=== PATIENT | male | born 1945 | race Caucasian/White ===

== ENCOUNTER 2020-01-22 15:21 | Emergency (ER) | payer OTHER, MEDICARE ==
--- NOTE | 2020-01-22 15:42 | EDM.PDOC ---
ED HPI GENERAL MEDICAL PROBLEM - General Chief Complaint: Respiratory Problem Stated Complaint: hypoxia Time Seen by Provider: 01/22/20 15:25 Source of Information: Reports: EMS, Correction Records History Limitations: Reports: Altered Mental Status - History of Present Illness INITIAL COMMENTS - FREE TEXT/NARRATIVE: Patient presents to ER per EMS from the local senior care with concerns of fever, hypoxia and increased weakness. Reportedly had a seizure 2 days ago. History of seizure disorder but has not had one for "a long time". Oxygen sats were in the 70s per senior care staff, have improved to 97% on 3 liters. Has moist cough. Temp was 102 earlier today. Was given tylenol. STaff had to use a fawn lift for transfers, noted to be leaning to the right and unsteady but strengths are equal bilaterally. Onset: Gradual Duration: Day(s): Location: Reports: Chest, Generalized Associated Symptoms: Reports: Confusion, Cough, Fever/Chills, Shortness of Breath, Weakness. 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 - Related Data Allergies Allergy/AdvReac Type Severity Reaction Status Date / Time lidocaine Allergy Other Verified 01/22/20 16:09 Home Meds: Home Meds Acetaminophen [Acetaminophen ER] 650 mg PO Q4HR PRN 01/22/20 [History] Bisacodyl [Dulcolax] 5 mg PO ASDIRECTED PRN 01/22/20 [History] Escitalopram Oxalate 10 mg PO DAILY 01/22/20 [History] Gabapentin [Neurontin] 300 mg PO BID 01/22/20 [History] QUEtiapine [SEROquel] 50 mg PO DAILY 01/22/20 [History] QUEtiapine [SEROquel] 75 mg PO BID 01/22/20 [History] Sennosides/Docusate Sodium [Senna Plus 8.6-50 mg Softgel] 1 each PO ASDIRECTED PRN 01/22/20 [History] bisacodyL [Bisacodyl] 10 mg RC ASDIRECTED PRN 01/22/20 [History] Past Medical History Cardiovascular History: Reports: High Cholesterol, Hypertension Gastrointestinal History: Reports: Chronic Constipation Neurological History: Reports: Seizure Psychiatric History: Reports: Alzheimers Disease, Anxiety Social & Family History - Tobacco Use Smoking Status *Q: Unknown Ever Smoked ED ROS GENERAL - Review of Systems Review Of Systems: Unable To Obtain Reason Not Obtained: ROS that is obtained is per senior care staff. Disoriented. Constitutional: Reports: Fever, Chills, Weakness Respiratory: Reports: Shortness of Breath, Cough Neurological: Reports: Seizure, Weakness ED EXAM, GENERAL - Physical Exam Exam: See Below Exam Limited By: No Limitations General Appearance: Alert, WD/WN, No Apparent Distress Ears: Normal External Exam, Normal TMs Throat/Mouth: Normal Inspection, Normal Oropharynx Head: Normocephalic Neck: Normal Inspection, Supple, Non-Tender Respiratory/Chest: No Respiratory Distress, Lungs Clear, Decreased Breath Sounds Cardiovascular: Regular Rate, Rhythm GI/Abdominal: Normal Bowel Sounds, Soft, Non-Tender Extremities: Normal Inspection, Pedal Edema (trace) Neurological: Alert, Confused, Disoriented Skin Exam: Warm, Dry, Other (has bruising to left outer eye) Course - Vital Signs Last Recorded V/S: Last Vital Signs Temp 99.6 F 01/22/20 15:34 Pulse 80 01/22/20 15:34 Resp 20 01/22/20 15:34 BP 136/81 01/22/20 15:34 Pulse Ox 98 01/22/20 16:23 - Orders/Labs/Meds Orders: Active Orders 24 hr Category Date Time Status CULTURE BLOOD [BC] Stat Lab 01/22/20 15:33 Ordered CULTURE BLOOD [BC] Stat Lab 01/22/20 15:33 Ordered D-DIMER QUANTITATIVE [COAG] Stat Lab 01/22/20 15:32 Ordered Blood Culture x2 Reflex Set [OM.PC] Stat Oth 01/22/20 15:33 Ordered Labs: Laboratory Tests 01/22/20 01/22/20 01/22/20 Range/Units 15:32 15:53 15:53 WBC 8.9 (4.0-10.0) x10^3/uL RBC 4.26 L (4.5-6.0) x10^6/uL Hgb 12.8 L (14.0-18.0) g/dL Hct 38.3 L (40.0-52.0) % MCV 89.9 (78.0-93.0) fL MCH 30.0 (26.0-32.0) pg MCHC 33.4 (32.0-36.0) g/dL RDW Coeff of Zan 13.4 (10.0-15.0) % Plt Count 195 (130-400) x10^3/uL Neut % (Auto) 87.8 H (50.0-80.0) % Lymph % (Auto) 6.7 L (25.0-50.0) % [place] % (Auto) 5.0 (2.0-11.0) % Eos % (Auto) 0.3 (0.0-4.0) % Baso % (Auto) 0.2 (0.2-1.2) % Sodium 142 (136-145) mmol/L Potassium 4.0 (3.5-5.1) mmol/L Chloride 107 (98-107) mmol/L Carbon Dioxide 28 (21-32) mmol/L Anion Gap 11.0 (10-20) mmol/L BUN 18 (7-18) mg/dL Creatinine 1.0 (0.70-1.30) mg/dL Est Cr Clr Drug Dosing 65.79 mL/min Estimated GFR (MDRD) > 60 Glucose 101 (74-106) mg/dL Lactic Acid (0.4-2.0) mmol/L Calcium 8.8 (8.5-10.1) mg/dL Corrected Calcium 9.52 (8.5-10.1) mg/dL Total Bilirubin 0.6 (0.2-1.0) mg/dL AST 38 H (15-37) U/L ALT 44 (16-63) U/L Alkaline Phosphatase 99 (46-116) U/L Troponin I < 0.017 (<=0.056) ng/mL C-Reactive Protein 2.9 H (<=0.9) mg/dL NT-Pro-B Natriuret Pep 144 H (<=125) pg/mL Total Protein 6.9 (6.4-8.2) g/dL Albumin 3.1 L (3.4-5.0) g/dL Globulin 3.8 Albumin/Globulin Ratio 0.82 Urine Color Yellow (YELLOW) Urine Appearance Clear (CLEAR) Urine pH 5.5 (5.0-8.0) Ur Specific [place] 1.025 Urine Protein Trace H (NEGATIVE) mg/dL Urine Glucose (UA) Negative (NEGATIVE) mg/dL Urine Ketones Negative (NEGATIVE) mg/dL Urine Occult Blood Trace-intact H (NEGATIVE) Urine Nitrite Negative (NEGATIVE) Urine Bilirubin Negative (NEGATIVE) Urine Urobilinogen 2.0 H (0.2) EU/dL Ur Leukocyte Esterase Trace H (NEGATIVE) Urine RBC 0-5 (NOT SEEN) /HPF Urine WBC 10-20 H (NOT SEEN) /HPF Ur Epithelial Cells Few 01/22/20 Range/Units 15:53 WBC (4.0-10.0) x10^3/uL RBC (4.5-6.0) x10^6/uL Hgb (14.0-18.0) g/dL Hct (40.0-52.0) % MCV (78.0-93.0) fL MCH (26.0-32.0) pg MCHC (32.0-36.0) g/dL RDW Coeff of Zan (10.0-15.0) % Plt Count (130-400) x10^3/uL Neut % (Auto) (50.0-80.0) % Lymph % (Auto) (25.0-50.0) % [place] % (Auto) (2.0-11.0) % Eos % (Auto) (0.0-4.0) % Baso % (Auto) (0.2-1.2) % Sodium (136-145) mmol/L Potassium (3.5-5.1) mmol/L Chloride (98-107) mmol/L Carbon Dioxide (21-32) mmol/L Anion Gap (10-20) mmol/L BUN (7-18) mg/dL Creatinine (0.70-1.30) mg/dL Est Cr Clr Drug Dosing mL/min Estimated GFR (MDRD) Glucose (74-106) mg/dL Lactic Acid 1.5 (0.4-2.0) mmol/L Calcium (8.5-10.1) mg/dL Corrected Calcium (8.5-10.1) mg/dL Total Bilirubin (0.2-1.0) mg/dL AST (15-37) U/L ALT (16-63) U/L Alkaline Phosphatase (46-116) U/L Troponin I (<=0.056) ng/mL C-Reactive Protein (<=0.9) mg/dL NT-Pro-B Natriuret Pep (<=125) pg/mL Total Protein (6.4-8.2) g/dL Albumin (3.4-5.0) g/dL Globulin Albumin/Globulin Ratio Urine Color (YELLOW) Urine Appearance (CLEAR) Urine pH (5.0-8.0) Ur Specific [place] Urine Protein (NEGATIVE) mg/dL Urine Glucose (UA) (NEGATIVE) mg/dL Urine Ketones (NEGATIVE) mg/dL Urine Occult Blood (NEGATIVE) Urine Nitrite (NEGATIVE) Urine Bilirubin (NEGATIVE) Urine Urobilinogen (0.2) EU/dL Ur Leukocyte Esterase (NEGATIVE) Urine RBC (NOT SEEN) /HPF Urine WBC (NOT SEEN) /HPF Ur Epithelial Cells Meds: Medications Discontinued Medications Generic Name Dose Route Start Last Admin Trade Name Freq PRN Reason Stop Dose Admin Sodium Chloride 1,000 mls @ 100 mls/hr 01/22/20 15:45 Normal Saline IV ASDIRECTED [facility] - Re-Assessments/Exams Free Text/Narrative Re-Assessment/Exam: 01/22/20 16:53 Labs are all normal. Chest xray normal. Contacted with status. Will arrange to return back to the [facility]. Departure - Departure Time of Disposition: 16:54 Disposition: Home, Self-Care 01 Condition: Good Clinical Impression: Viral infection - Discharge Information *PRESCRIPTION DRUG MONITORING PROGRAM REVIEWED*: No *COPY OF PRESCRIPTION DRUG MONITORING REPORT IN PATIENT JUAN A: No Referrals: Elham Medina MD [Primary Care Provider] - Forms: ED Department Discharge Additional Instructions: 1. Push fluids 2. Monitor oxygen sats and temp every 6 hours for next 24 hours 3. Tylenol as needed for fever 4. Resume all other cares 5. Follow up with PCP for persisting concerns. Sepsis Event Note - Focused Exam Vital Signs: Vital Signs Temp Pulse Resp BP Pulse Ox 01/22/20 16:23 98 01/22/20 16:22 99 01/22/20 15:34 99.6 F 80 20 136/81 98 Date Exam was Performed: 01/22/20 Time Exam was Performed: 17:11 - My Orders Last 24 Hours: My Active Orders 01/22/20 15:32 D-DIMER QUANTITATIVE [COAG] Stat 01/22/20 15:33 CULTURE BLOOD [BC] Stat CULTURE BLOOD [BC] Stat Blood Culture x2 Reflex Set [OM.PC] Stat - Assessment/Plan Last 24 Hours: My Active Orders 01/22/20 15:32 D-DIMER QUANTITATIVE [COAG] Stat 01/22/20 15:33 CULTURE BLOOD [BC] Stat CULTURE BLOOD [BC] Stat Blood Culture x2 Reflex Set [OM.PC] Stat
[2020-01-22] MEDS ORDERED: Sodium Chloride 0.9% 1,000 ML IV SCH (15:45)
[2020-01-22 16:32] LABS: CHLORIDE,CL 107 mmol/L (98-107); SODIUM,NA 142 mmol/L (136-145)
--- NOTE | 2020-01-22 16:43 | CR ---
[id number] RAD/RAD Chest PA or AP 1V EXAM: RAD Chest PA or AP 1V INDICATION: sob COMPARISON: January 22, 2020. DISCUSSION: Cardiomediastinal silhouette is prominent in size. No infiltrate, effusion, pneumothorax, or edema. Low lung volumes associated vascular crowding. Right basilar subsegmental atelectasis. IMPRESSION: No acute cardiopulmonary abnormality. Buzz Thayer DO 01/22/20 [id number] Thank you for allowing us to participate in the care of your patient.
== END 2020-01-22 17:10 | disposition home or self-care (01) ==
LOC: VM.ED 15:21
DX: B34.9 Viral infection, unspecified (principal); I10 Essential (primary) hypertension; G30.9 Alzheimer's disease, unspecified; F02.80 Dementia in other diseases classified elsewhere, unspecified severity, without behavioral disturbance, psychotic disturbance, mood disturbance, and anxiety; R56.9 Unspecified convulsions; F41.9 Anxiety disorder, unspecified; Z79.899 Other long term (current) drug therapy; Z88.4 Allergy status to anesthetic agent
CPT/HCPCS: 36415; 71045; 80053; 81001; 83605; 83880; 84484; 85025; 85379; 86140; 87040; 87804; 87804-59; 99285-25